=== PATIENT | male | born 1985 | race African-American/Black ===

== ENCOUNTER 2017-02-03 21:13 | Emergency (ER) | payer OTHER ==
[~2017-02-03] VITALS: Ht 182.9 cm; Wt 147.4 kg
--- NOTE | ~2017-02-03 | EKG ---
PATIENT: FRANCA BRUNNER UNIT #: [id number] Ventricular Rate: 66 BPM Atrial Rate: 66 BPM P-R Interval: 180 ms QRS Duration: 96 ms Q-T Interval: 404 ms QTC Calculation(Bezet): 423 ms P [place]: 50 degrees Calculated R [place]: 53 degrees Calculated T [place]: 50 degrees Diagnosis Line: Normal sinus rhythm with sinus arrhythmia Diagnosis Line: Normal ECG Diagnosis Line: When compared with ECG of 19-AUG-2012 20:04, Diagnosis Line: No significant change was found Diagnosis Line: Confirmed by MYLENE LOVE MD ([id number]) on Diagnosis Line: 02/04/2017 3:28:07 PM INTERPRETING MD: TIMBO
--- NOTE | ~2017-02-03 | CR72 ---
[facility] Service of [facility] RADIOLOGY TEXT RESULTS PATIENT: FRANCA BRUNNER LOCATION: [facility] : 81 UNIT #: [id number] AGE: [address]: Yolie Loza APRN SEX: M ORDER DR: [id number] [facility] [address] [place], [place] [address] [id number] E MR#: [id number] Acc #: [id number] NAME: FRANCA BRUNNER : 1985 SEX: M STUDY DATE/TIME: 02/03/2017 23:00 UNIT: [facility] ROOM: STUDY DESCRIPTION: CR Chest Single View Portable Attending Physician: Yolie Loza A.P.R.N. Ordering Physician: Yolie Loza A.P.R.N. Primary Care Physician: Niko Cary M.D. MEDICAL IMAGING REPORT This report is preliminary unless electronic signature is present EXAM Portable chest, 02/03 23:00 INDICATION Shortness of air and chest heaviness for 2 days. COMPARISON 08/14/2014 FINDINGS A single AP portable view of the chest shows both lungs to be clear. The heart is normal in size. The mediastinal contour is normal. No significant bone abnormalities are seen. IMPRESSION Normal portable chest. Dictated by... Chemo Sousa Jr., M.D. THIS IS AN ELECTRONICALLY VERIFIED REPORT Chemo Sousa Jr., M.D. at 02/04/2017 11:27 PM NEHAL/blessing TD: 02/04/2017 09:25 JOB #: [id number] MEDICAL IMAGING REPORT Page 1 of 1 COPY
[~2017-02-03 21:13] MED LIST: ASPIRIN EC81 M1 PO; FLEXERIL10 MG PO; NORVASC PO; VOLTAREN75 MG PO
[2017-02-03 23:02] LABS: POC - CKMB 3.9 ng/mL (0.0-7.9); POC - TROPONIN <0.05 ng/mL (<=0.05)
[2017-02-03 23:06] LABS: BASOPHIL% 0.5 % (0-2.5); DIFF IND NO; EOSINOPHIL# 0.2 X10e3 (0-0.7); EOSINOPHIL% 2.4 % (0.0-7.0); HEMATOCRIT 39.2 % (38.0-50.0); HEMOGLOBIN 13.1 gm/dL (13.0-16.0); LYMPHOCYTE# 3.7 X10e3 (1.0-3.5); LYMPHOCYTE% 43.8 % (17.0-45.0); MEAN CELL VOLUME 86.2 FL (83-96); MEAN CORPUSCULAR HEMOGLOBIN 28.8 PG (28-34); MEAN CORPUSCULAR HGB CONC 33.4 g/dL (30-36); MONOCYTE# 0.6 X10e3 (0-1.0); MONOCYTE% 7.3 % (3.0-12.0); NEUTROPHIL# 3.9 X10e3 (1.5-7.1); PLATELET COUNT 235 X10e3 (140-420); RED BLOOD COUNT 4.54 X10e (3.90-5.60); RED CELL DISTRIBUTION WIDTH 14.1 % (11.0-15.5); WHITE BLOOD COUNT 8.4 X10e3 (4.0-10.5)
[2017-02-03 23:21] LABS: PROTHROMBIN TIME (PATIENT) 10.4 SECONDS (10.0-11.7)
[2017-02-03 23:34] LABS: ALBUMIN SERUM 4.1 g/dL (3.5-5.0); BILIRUBIN,TOTAL 0.1 mg/dL (0.2-2.0); CALCIUM SERUM 8.8 mg/dL (8.4-10.2); GLOM FILT RATE Estimated 114.1 mL/min (>60); POTASSIUM 3.3 mmol/L (3.5-5.1); PROTEIN TOTAL SERUM 7.1 g/dL (6.0-8.3)
[2017-02-04 00:15] LABS: POC - CKMB 2.9 ng/mL (0.0-7.9); POC - TROPONIN <0.05 ng/mL (<=0.05)
== END 2017-02-04 00:49 | disposition home or self-care (01) ==
LOC: CED 21:13 → CFTX 21:13
PROVIDERS: Nurse Practitioner
DX: R07.89 Other chest pain (principal); F41.9 Anxiety disorder, unspecified; F17.210 Nicotine dependence, cigarettes, uncomplicated; Z88.8 Allergy status to other drugs, medicaments and biological substances
CPT/HCPCS: 36415; 71010; 80053; 82553; 82947; 83690; 84484; 85025; 85379; 85610; 85730; 93005; 96361; 96374; 96375; 99285; J1885